=== PATIENT | male | born 1965 | race Caucasian/White ===

== ENCOUNTER 2021-01-17 22:56 | Emergency (ER) | payer OTHER ==
[~2021-01-17] VITALS: Ht 193 cm; Wt 95.3 kg
[~2021-01-17 22:56] MED LIST: BUPROPION; CARVEDILOL; INSULIN; KLONOPIN; METFORMIN; OMEPRAZOLE
--- NOTE | 2021-01-17 22:56 | NUR ---
Placed in room 5 . Placed on child monitor, blood pressure machine and pulse oximeter. To gown for exam. Side rails up. Report given to Dianna ELDER.
--- NOTE | 2021-01-17 22:56 | NUR ---
# 18 gauge angiocath placed to LEFT AC PLACED BY MEDICS PRIOR TO ARRIVAL. Flushed with 10 cc of normal saline. No evidence of infiltration noted. Patient tolerated well.
[2021-01-17 23:00] VITALS: BP_SYST 174
--- NOTE | 2021-01-17 23:00 | NUR ---
Pt was BIBA from home c/o HTN and LLQ abdominal pain. Pt was at home and bent over when he felt like passing out. +CM, blurred vision, nausea, no KO. Pt states now CM, Nausea and blurred vision has almost resolved. Pt states his apple watch notified him he was tachycardic. Pt is wearing a Clonidine patch 0.2mg. Pt denies CP, SOB, nausea/vomiting, blurred vision. Per EMS pt was ST on EKG. BG 146 en route.
--- NOTE | 2021-01-18 00:52 | NUR ---
EMT AT BEDSIDE PERFORMING EKG.
--- NOTE | 2021-01-18 01:19 | NUR ---
ER at bedside examining patient.
--- NOTE | 2021-01-18 01:39 | NUR ---
Blood for labwork drawn from TECH AT BEDSIDE. Patient tolerated WELL.
[2021-01-18] MEDS ORDERED: NACL 0.9% 1,000 ML IV ONE (01:45)
--- NOTE | 2021-01-18 01:45 | NUR ---
RADIOLOGY AT BEDSIDE FOR CHEST XRAY.
[2021-01-18 02:09] LABS: CALCIUM 9.1 mg/dL (8.4-11.0); CREATININE 1.06 mg/dL (0.55-1.30)
[2021-01-18 02:14] LABS: ALBUMIN 3.8 g/dL (3.4-4.8); TOTAL BILIRUBIN 0.1 mg/dL (0.0-1.0)
[2021-01-18 02:25] LABS: BASOPHILS # (AUTO) 0.1 K/uL (0.0-0.2); BASOPHILS % (AUTO) 0.8 % (0.0-2.0); EOSINOPHILS # (AUTO) 0.1 K/uL (0.0-0.4); HEMATOCRIT 46.6 % (36-54); HEMOGLOBIN 15.2 g/dL (14.0-18.0); LYMPHOCYTES # (AUTO) 1.6 K/uL (1.0-5.5); LYMPHOCYTES % (AUTO) 20.2 % (20.5-51.5); MEAN CORPUSCULAR HEMOGLOBIN 28 pg (27-31); MEAN CORPUSCULAR HGB CONC 33 % (32-36); MEAN CORPUSCULAR VOLUME 85 fL (79.0-98.0); MONOCYTES # (AUTO) 0.5 K/uL (0.0-1.0); MONOCYTES % (AUTO) 5.8 % (1.7-9.3); NEUTROPHILS # (AUTO) 5.8 K/uL (1.8-7.7); NEUTROPHILS % (AUTO) 72.2 % (40.0-70.0); PLATELET COUNT (AUTO) 203 K/uL (130-430); RED BLOOD CELL COUNT(AUTO) 5.46 MIL/uL (4.2-6.2); RED CELL DISTRIBUTION WIDTH 13.7 % (9.0-15.0); WHITE BLOOD COUNT (AUTO) 8.1 K/uL (4.8-10.8)
--- NOTE | 2021-01-18 02:35 | NUR ---
Patient resting quietly. No acute distress noted. Vital signs within normal range.
--- NOTE | 2021-01-18 03:12 | NUR ---
DR. PARSONS AT BEDSIDE SPEAKING WITH PATIENT.
[2021-01-18 03:50] VITALS: BP_SYST 144
== END 2021-01-18 03:50 | disposition home or self-care (01) ==
LOC: SED 22:56
DX: I95.1 Orthostatic hypotension (principal); I10 Essential (primary) hypertension; E11.9 Type 2 diabetes mellitus without complications; F41.9 Anxiety disorder, unspecified; Z79.899 Other long term (current) drug therapy
CPT/HCPCS: 36415; 71045; 80053; 84484; 85025; 93005; 96360; 99285; J7030

== ENCOUNTER 2022-03-19 09:55 | Emergency (ER) | payer OTHER ==
[~2022-03-19] VITALS: Ht 193 cm; Wt 90.7 kg
[2022-03-19 09:55] VITALS: BP_SYST 192
--- NOTE | 2022-03-19 09:55 | NUR ---
BROUGHT IN BY [facility], PT IS AWAITING ER BED AVAILABILITY
--- NOTE | 2022-03-19 11:00 | NUR ---
ED MD ANDREW AT BEDSIDE
[2022-03-19 11:14] VITALS: BP_SYST 168
--- NOTE | 2022-03-19 11:15 | NUR ---
RECEIVED PT IN BED #5 FROM HOME BIBA FOR CC OF ABDOMINAL PAIN FOR THE PAST HOUR. PT IS STABLE, NAD, VSS, AAOx3, AWAITING DISPOSITION AFTER RESULTS.
[2022-03-19 11:40] LABS: CREATININE 0.96 mg/dL (0.55-1.30); POTASSIUM 3.8 mmol/L (3.5-5.1)
[2022-03-19 11:46] LABS: ALBUMIN 3.6 g/dL (3.4-4.8); TOTAL BILIRUBIN 0.4 mg/dL (0.0-1.0)
[2022-03-19 11:49] LABS: BASOPHILS % (AUTO) 0.8 % (0.0-2.0); EOSINOPHILS # (AUTO) 0.1 K/uL (0.0-0.4); EOSINOPHILS % (AUTO) 1.6 % (0.0-4.0); HEMATOCRIT 42.7 % (36-54); HEMOGLOBIN 14.5 g/dL (14.0-18.0); LYMPHOCYTES # (AUTO) 1.2 K/uL (1.0-5.5); LYMPHOCYTES % (AUTO) 24.8 % (20.5-51.5); MEAN CORPUSCULAR HEMOGLOBIN 29 pg (27-31); MEAN CORPUSCULAR HGB CONC 34 % (32-36); MEAN CORPUSCULAR VOLUME 84 fL (79.0-98.0); MONOCYTES # (AUTO) 0.4 K/uL (0.0-1.0); MONOCYTES % (AUTO) 7.2 % (1.7-9.3); NEUTROPHILS # (AUTO) 3.3 K/uL (1.8-7.7); NEUTROPHILS % (AUTO) 65.6 % (40.0-70.0); PLATELET COUNT (AUTO) 181 K/uL (130-430); RED CELL DISTRIBUTION WIDTH 13.7 % (9.0-15.0)
[2022-03-19 12:41] LABS: ERYTHROCYTE SEDIMENTATION RATE 2 MM/HR (0-15)
[2022-03-19 12:52] LABS: BILIRUBIN,URINE NEGATIVE (NEGATIVE); BLOOD, URINE NEGATIVE (NEGATIVE); CLARITY/URINE SL CLOUDY (CLEAR); COLOR,URINE YELLOW (YELLOW); GLUCOSE,URINE 3+ (NEGATIVE); KETONES,URINE 1+ (NEGATIVE); LEUKOCYTE ESTERASE ,URINE NEGATIVE (NEGATIVE); NITRITE, URINE NEGATIVE (NEGATIVE); PROTEIN URINE NEGATIVE (NEGATIVE); UROBILINOGEN,URINE 0.2 (0.2-1.0)
--- NOTE | 2022-03-19 13:00 | NUR ---
Patient given written and verbal discharge instructions and verbalizes understanding. ER MD discussed with patient the results and treatment provided. Patient in stable condition. ID arm band removed.
[2022-03-19 13:15] LABS: BACTERIA,URINE FEW /HPF (None Seen); CALCIUM OXALATE CRYSTALS,UR 0-10 /HPF (None Seen); RBC,URINE 0-3 /HPF (0-3); WBC,URINE 0-3 /HPF (0-3)
== END 2022-03-19 13:00 | disposition home or self-care (01) ==
LOC: SED 09:55
DX: R10.32 Left lower quadrant pain (principal); E11.9 Type 2 diabetes mellitus without complications; I10 Essential (primary) hypertension; Z88.0 Allergy status to penicillin; Z88.2 Allergy status to sulfonamides
CPT/HCPCS: 36415; 76376; 80053; 81000; 83690; 85025; 85651-TC; 99284